=== PATIENT | female | born 1975 | race Caucasian/White ===

== ENCOUNTER 2020-07-03 21:29 | Emergency (ER) | payer OTHER, SELFPAY ==
[2020-07-03 21:51] VITALS: BP 109/80; PULSE 110; RESP 18; TEMP 36.7; O2SAT 98; BMI 37.8
--- NOTE | 2020-07-03 21:53 | ED.SEIZURE ---
HPI - Seizure General Chief Complaint: Overdose Stated Complaint: ?seizure Time Seen by Provider: 07/03/20 21:53 Source: patient and EMS Mode of arrival: EMS History of Present Illness HPI Narrative: Patient use crack and cocaine more than usual was very irritable scratching all over brought here for possible seizure . patient without any postictal findings no incontinence of urine times none no history of seizure no head injury Related Data Allergies Allergy/AdvReac Type Severity Reaction Status Date / Time adhesive tape [ADHESIVE TAPE] Allergy Intermediate ITCHING Unverified 12/02/19 15:48 bee pollen [BEE STINGS] Allergy Unknown SWELLING Unverified 12/02/19 15:48 Review of Systems Review of Systems: Constitutional : No Weight loss, No Fever, No Chills ENT/Mouth : No sore throat, No Rhinorrhea Eyes: No Eye Pain, No Swelling Cardiovascular : No Chest Pain, no palpitations Respiratory : No Cough, No Sputum, no shortness of breath Gastrointestinal : no Nausea, No Vomiting, No Diarrhea, No abdominal Pain, no black stools Genitourinary : No Dysuria, No Urinary Frequency Musculoskeletal : No joint pain, No Myalgias, No Joint Swelling Skin : No Skin Lesions, No rash Neuro : No Weakness, No Numbness, No Dizziness, No Headache Psych : No Anxiety/Panic, No Depression Heme/Lymph: No Bruising, No Lymphadenopathy Endocrine : No Polyuria, No Polydipsia All other systems reviewed and are negative PMFSH Past Medical History Medical History Drug abuse No known health problems Social History Social History Advance Directives: No Advance Directives Information Provided: Yes Physical Exam Vital Signs: Vital Signs: Last Vital Signs Temp 98.0 F 07/03/20 21:51 Pulse 100 07/03/20 22:24 Resp 19 07/03/20 22:24 BP 115/79 07/03/20 22:24 Pulse Ox 99 07/03/20 22:24 Body Mass Index 37.8 Appearance: Alert. Oriented X3. No acute distress. anxious Eyes: Pupils equal, round and reactive to light. ENT: Pharynx normal. Neck: Normal inspection. Neck supple. CVS: Sinus tachycardia no murmur Pulses normal. Respiratory: No respiratory distress. Breath sounds normal. Abdomen: Soft and nontender. Bowel sounds are present, no mass palpable, no CVA tenderness Skin: Skin warm and dry. Normal skin color. Normal skin turgor. Extremities: No lower extremity edema. Neuro: Oriented X 3. No motor deficit. No sensory deficit. MDM - Seizure MDM Narrative Medical decision making narrative: Patient feeling much better now still complaining of anxiety , urine tox showed cocaine and marijuana patient already received Ativan, will discharge her home advised to sleep and stop using cocaine Lab Data Attestation: I reviewed the patient's lab results. Labs: Lab Results 07/03/20 07/03/20 07/03/20 Range/Units 22:23 22:23 22:24 Urine Color YELLOW Urine Appearance CLEAR Urine pH 7.0 (5.0-8.0) Ur Specific [place] 1.010 (1.005-1.025) Urine Protein TRACE (NEG-TRACE) MG/DL Urine Glucose (UA) NEG (NEG) MG/DL Urine Ketones NEG (NEG) MG/DL Urine Blood NEG (NEG) Urine Nitrite NEG (NEG) Ur Leukocyte Esterase NEG (NEG) Urine Opiates Screen Not Detected (Not Detect) Ur Barbiturates Screen Not Detected (Not Detect) Ur Phencyclidine Scrn Not Detected (Not Detect) Ur Amphetamines Screen Not Detected (Not Detect) U Benzodiazepines Scrn Not Detected (Not Detect) Urine Cocaine Screen POSITIVE H (Not Detect) U Marijuana (THC) Screen POSITIVE H (Not Detect) COVID-19 ([facility]) Negative (Negative) COVID-19 Clin Com See Note Discharge Plan Discharge Clinical Impression: Cocaine intoxication Qualifiers: Complication of substance-induced condition: uncomplicated Qualified Code(s): F14.920 - Cocaine use, unspecified with intoxication, uncomplicated Patient Disposition: Home, Self-Care Instructions: Cocaine Abuse (ED) Additional Instructions: Stop using cocaine. Follow up with detox
[2020-07-03] MEDS: LORazepam 1 MG TABLET 2 MG PO (22:13)
--- NOTE | 2020-07-03 22:16 | PC.NURSE ---
patient is very fidgety, restless in the bed. bedside commode was brought to the room, patient is steady on her feet.
[2020-07-03 22:24] VITALS: BP 115/79; PULSE 100; RESP 19; O2SAT 99
[2020-07-03 22:36] LABS: Glucose Urine UA NEG (NEG); Leukocyte Esterase Urine NEG (NEG); Nitrite Urine NEG (NEG); Urine Blood NEG (NEG); Urine Ketones NEG (NEG); Urine Protein TRACE MG/DL (NEG-TRACE)
[2020-07-03 22:40] LABS: Appearance Urine CLEAR; Color Urine YELLOW
[2020-07-03 22:59] LABS: COVID-19 Test Negative (Negative); IDNOW Serial# 9DD0AD1C
[2020-07-03 23:05] LABS: Amphetamine Screen Urine Not Detected (Not Detect); Barbiturates, Urine Not Detected (Not Detect); Benzodiazepines Screen Urine Not Detected (Not Detect); Cannabinoid Screen Urine POSITIVE (Not Detect); Cocaine Screen Urine POSITIVE (Not Detect); Opiate Screen Urine Not Detected (Not Detect); Phencyclidine Screen Urine Not Detected (Not Detect)
[2020-07-04 00:03] VITALS: BP 169/98; PULSE 97; RESP 17; O2SAT 97
== END 2020-07-03 23:58 | disposition home or self-care (01) ==
PROVIDERS: Emergency Provider Internal Medicine; PCP Internal Medicine
DX: F14.120 Cocaine abuse with intoxication, uncomplicated (principal); Z20.822 Contact with and (suspected) exposure to COVID-19; F41.9 Anxiety disorder, unspecified
CPT/HCPCS: 36415; 80307; 81003; 87635; 99283; 99284